=== PATIENT | male | born 1975 | race Caucasian/White ===

== ENCOUNTER 2018-09-06 08:15 | Outpatient (CLI) | payer BC ==
--- NOTE | 2018-09-06 08:57 | ULT ---
ABDOMINAL ULTRASOUND: Date: 09/06/18 INDICATION: Abdominal pain. FINDINGS: Gallbladder has a normal sonographic appearance. No evidence of gallstones. Common duct is normal ángel iber, measured at 3-4 mm. Visualized aorta and IVC are unremarkable as visualized. Pancreas obscured. Liver shows mild increased echogenicity consistent with fatty infiltration. The pancreas is mostly obscured. Spleen is imaged and appears unremarkable. Both kidneys are imaged and appear unremarkable. IMPRESSION: Evidence of mild hepatic steatosis. Abdominal ultrasound otherwise unremarkable. POS: [facility]
== END 2018-09-06 08:16 | disposition home or self-care (01) ==
LOC: SCSULT 08:15
PROVIDERS: ATTEND Internal Medicine Gastroenterology
DX: R10.9 Unspecified abdominal pain (principal); K76.0 Fatty (change of) liver, not elsewhere classified
CPT/HCPCS: 76700

== ENCOUNTER 2023-03-25 11:14 | Outpatient (CLI) | payer BC | END 2023-03-25 11:15 | disposition home or self-care (01) | LOC: SCSRAD 11:14 | PROVIDERS: ATTEND Family Medicine | DX: R05.3 Chronic cough (principal); J98.4 Other disorders of lung | CPT/HCPCS: 71046 ==